=== PATIENT | male | born 1960 | race Caucasian/White ===

== ENCOUNTER 2018-08-03 09:22 | Emergency (ER) | payer OTHER ==
[~2018-08-03] VITALS: Ht 175.3 cm; Wt 84.0 kg
[2018-08-03 09:25] VITALS: BP 145/66; PULSE 89; RESP 18; Ht 175.3 cm; Wt 84.0 kg
[2018-08-03] MEDS ORDERED: KETOROLAC 30 MG INJ IM STA (09:37)
[2018-08-03] MEDS ORDERED: IBUP-1542 PO (10:48)
[2018-08-03] MEDS ORDERED: TRAM50TA2 PO (10:48)
--- NOTE | 2018-08-03 10:52 | ERD ---
ER Documentation Chief Complaint Chief Complaint left shoulder pain/injury HPI 58-year-old male had sudden onset left shoulder pain after opening a container yesterday. He is unable to lift his left arm or keep it raised after raising with assistance. He denies any head injury, neck pain, previous shoulder problems. Patient works as a truck loader ROS All systems reviewed and are negative except as per history of present illness. Medications Home Meds Active Scripts Tramadol HCl (Tramadol HCl) 50 Mg Tablet, 50 MG PO Q4 PRN for PAIN, #18 TAB Prov:MATTEO BLANCO MD 08/03/18 Ibuprofen* (Motrin*) 600 Mg Tab, 600 MG PO Q6, #30 TAB Prov:MATTEO BLANCO MD 08/03/18 Allergies Allergies: Coded Allergies: No Known Allergy (Unverified , 08/03/18) PMhx/Soc Medical and Surgical Hx: pt denies Medical Hx, pt denies Surgical Hx Hx Alcohol Use: No Hx Substance Use: No Hx Tobacco Use: No Smoking Status: Never smoker FmHx Family History: No diabetes, No coronary disease, No other Physical Exam Vitals Vital Signs Date Temp Pulse Resp B/P (MAP) Pulse Ox O2 O2 Flow FiO2 Time Delivery Rate 08/03/18 98.1 89 18 145/66 99 09:25 (92) Physical Exam Const: No acute distress Head: Atraumatic Eyes: Normal Conjunctiva ENT: Normal External Ears, Nose and Mouth. Neck: Full range of motion. No meningismus. Resp: Clear to auscultation bilaterally Cardio: Regular rate and rhythm, no murmurs Abd: Soft, non tender, non distended. Normal bowel sounds Skin: No petechiae or rashes Back: No midline or flank tenderness Ext: No cyanosis, or edema. Tenderness in left rotator cuff area. Difficulty with extension and abduction with possible tendon deficit. Left upper extremity is neurovascular intact. Neur: Awake and alert Psych: Normal Mood and Affect Results 24 hrs Current Medications Medications Dose Sig/Chin Start Time Status Last (Trade) Ordered Route PRN Stop Time Admin Dose Reason Admin Ketorolac 30 mg ONCE STAT 08/03/18 DC 08/03/18 Tromethamine IM 09:37 09:45 (Toradol) 08/03/18 09:39 Procedures/MDM Patient presents with acute left shoulder pain with possible tendon deficits after opening a container yesterday. X-ray left shoulder 3V Interpreted by me: Bones: No fracture Joints: No dislocation Foreign body: None. Impression-left AC joint degenerative changes and calcific tendinosis. Patient was given Toradol 30 mg IM. Patient presents with signs and symptoms of left rotator cuff strain and tendinitis versus rotator cuff tear. Patient shows no signs of fracture, dislocation, septic arthritis, ischemia. We discharged home with recommendations for passive range of motion to prevent stiffness, ice, ibuprofen and tramadol for pain, and primary care and orthopedic follow-up. History of fevers, redness, new worsening symptoms. Patient advised he may need authorization from primary doctor for orthopedist visit. The patient was stable with no new complaints during the ER course. Clinically, there is no current evidence to suggest meningitis, sepsis, acute abdomen, pneumonia, stroke, acute coronary syndrome, pulmonary embolism, aortic dissection or any other emergent condition appearing to require further evaluation or hospitalization. Patient counseled regarding my diagnostic impression and care plan. Prior to discharge all questions answered. Pt agrees with treatment plan and understands strict return precautions. Pt is instructed to follow up with primary care provider within 24-48 hours. Precautionary instructions provided including instructions to return to the ER if not improving or for any worsening or changing symptoms or concerns. Disclaimer: Inadvertent spelling and grammatical errors are likely due to EHR/dictation software use and do not reflect on the overall quality of patient care. Also, please note that the electronic time recorded on this note does not necessarily reflect the actual time of the patient encounter. Departure Diagnosis: Primary Impression: Shoulder injury Encounter type: initial encounter Laterality: left Qualified Codes: S49.92XA - Unspecified injury of left shoulder and upper arm, initial encounter Condition: Stable Patient Instructions: Rotator Cuff Tear, Tendonitis Referrals: LANEY VEGA MD [facility] Hours: Mon-Fri 9:00 AM - 5:00 PM Additional Instructions: May be tendinitis or rotator cuff tear. See orthopedist for further evaluation and treatment. May need authorization from primary doctor for orthopedist visit. Apply ice at home. Recommend range of motion to prevent stiffness. MATTEO BLANCO MD Aug 03, 2018 10:52
== END 2018-08-03 11:05 | disposition home or self-care (01) ==
LOC: FTE 09:22
DX: S49.92XA Unspecified injury of left shoulder and upper arm, initial encounter (principal); X58.XXXA Exposure to other specified factors, initial encounter; Y92.9 Unspecified place or not applicable
CPT/HCPCS: 73030; 96372; 99284; J1885